=== PATIENT | female | born 1975 | race Caucasian/White ===

== ENCOUNTER 2017-04-21 17:27 | Emergency (ER) | payer BC ==
[~2017-04-21] VITALS: Ht 165.1 cm; Wt 65.0 kg
[2017-04-21] MEDS ORDERED: INTROVALE1 EACH PO (20:22)
[2017-04-21 20:23] LABS: HEMATOCRIT 38.7 % (36.0-46.0); MCH 30.6 PG (29.0-34.0); MCHC 34.4 G/DL (30.0-36.0); MCV 89.2 FL (83-99); MEAN PLAT.VOLUME 8.9 uM^3 (9.5-12.4); PLATELET COUNT 281 K/uL (156-360); RBC DIS.WIDTH-CV 12.7 % (11.8-14.6); RBC DIS.WIDTH-SD 41.9 % (39-53); RED BLOOD COUNT 4.34 M/uL (3.80-5.20); WHITE BLOOD COUNT 6.4 K/uL (4.1-10.2)
[2017-04-21 20:34] LABS: CHLORIDE 108 mEq/L (99-109); POTASSIUM 3.8 mEq/L (3.7-5.4); SODIUM 140 mEq/L (136-147)
[2017-04-21 20:36] LABS: GLUCOSE 95 mg/dL (70-99)
[2017-04-21 20:37] LABS: ANION GAP 10 MEQ/L (2-14)
[2017-04-21 20:40] LABS: GFR ESTIMATE (CALCULATED) > 59 mL/min/
[2017-04-21 20:41] LABS: UREA NITROGEN (BUN) 14 mg/dL (9-23)
[2017-04-21 20:42] LABS: CREATINE KINASE 95 IU/L (1-294); TOTAL CK 95 IU/L (1-294)
[2017-04-21 20:45] LABS: TROP-I INTERPRETATION NEGATIVE; TROPONIN-I < 0.01 ng/mL (0.0-0.30)
[2017-04-21 20:48] LABS: CK-MB 0.5 ng/mL (0.0-4.9)
[2017-04-21] MEDS ORDERED: MOTRIN600 MG PO (21:15)
[2017-04-21 21:49] VITALS: BP 122/67
== END 2017-04-21 21:49 | disposition home or self-care (01) ==
LOC: EME 17:27
PROVIDERS: Nurse Practitioner Family
DX: M79.622 Pain in left upper arm (principal); R07.89 Other chest pain
CPT/HCPCS: 71020; 80048; 82550; 82553; 84484; 85027; 93005; 99281; 99284